=== PATIENT | male | born 1990 | race Caucasian/White ===

== ENCOUNTER 2021-05-02 10:01 | Emergency (ER) | payer OTHER ==
[~2021-05-02] VITALS: Ht 182.9 cm; Wt 90.0 kg
[2021-05-02 10:01] VITALS: BP 120/68
--- NOTE | 2021-05-02 10:48 | RAD ---
Study: XR SHOULDER_LEFT 2+ VIEWS Indication: Injury. Comparison: None. Findings: Alignment is anatomic. No acute fracture. Maintained acromiohumeral interval. Impression: No acute osseous abnormality. Electronically signed by: JIM MAO MD (05/02/2021 10:45 AM) [id number]
[2021-05-02] MEDS ORDERED: DICL50TA4 PO (10:59)
--- NOTE | 2021-05-02 11:00 | PHYS DOC ---
Past History Past Medical History: No Pertinent History (YAHIR SEXTON APRN) Past Surgical History: No Surgical History (YAHIR SEXTON APRN) General Adult EDM: Chief Complaint: SHOULDER INJURY HPI: HPI: Patient is a 30-year-old male who presents today with left shoulder pain. Patient states approximately 3 weeks ago he fell and caught himself using his left arm on the ice, he said and since that time he has had left shoulder pain, and he says he sleeps on his left shoulder and when he is sleeping it hurts tremendously. Patient states he has not followed up with his primary care physician regarding this pain he says today the pain was so bad that he felt he needed to come to the emergency department to be evaluated. He states he has been taking [id number] nonsteroidal anti-inflammatories but has not been using ice to help with pain or swelling. (YAHIR SEXTON APRN) Review of Systems: Review of Systems: Constitutional: Denies fever or chills Eyes: Denies change in visual acuity HENT: Denies nasal congestion or sore throat Respiratory: Denies cough or shortness of breath Cardiovascular: Denies chest pain or edema GI: Denies abdominal pain, nausea, vomiting, bloody stools or diarrhea : Denies dysuria Musculoskeletal: Left shoulder pain denies back pain or joint pain Integument: Denies rash Neurologic: Denies headache, focal weakness or sensory changes Endocrine: Denies polyuria or polydipsia Lymphatic: Denies swollen glands Psychiatric: Denies depression or anxiety (YAHIR SEXTON APRN) Allergies: Allergies: Allergies Coded Allergies Type Severity Reaction Last Updated Verified No Known Drug Allergies 05/02/21 No (YAHIR SEXTON APRN) Physical Exam: PE: Constitutional: Well developed, well nourished, no acute distress, non-toxic appearance. [] HENT: Normocephalic, atraumatic, bilateral external ears normal, oropharynx moist, no oral exudates, nose normal. [] Eyes: PERRLA, EOMI, conjunctiva normal, no discharge. [] Neck: Normal range of motion, no tenderness, supple, no stridor. [] Cardiovascular:Heart rate regular rhythm, no murmur [] Lungs & Thorax: Bilateral breath sounds clear to auscultation [] Abdomen: Bowel sounds normal, soft, no tenderness, no masses, no pulsatile masses. [] Skin: Warm, dry, no erythema, no rash. [] Back: No tenderness, no CVA tenderness. [] Extremities: Left arm normal range of motion, patient does have tenderness along the upper aspects of the deltoid and into the upper shoulder, pain noted with outward rotation of the palm while the arm is stretched out, but he is able to do with that. Radial pulse 2+ cap refill and neurovascular intact distal to the injury Neurologic: Alert and oriented X 3, normal motor function, normal sensory function, no focal deficits noted. [] Psychologic: Affect normal, judgement normal, mood normal. [] (YAHIR SEXTON APRN) Current Patient Data: Vital Signs: Vital Signs Date Time Temp Pulse Resp B/P (MAP) Pulse Ox O2 Delivery O2 Flow Rate FiO2 05/02/21 10:01 97.7 59 16 120/68 (85) 96 Room Air (YAHIR SEXTON APRN) EKG: EKG: [] (YAHIR SEXTON APRN) Radiology/Procedures: Radiology/Procedures: [REASON: INJURY PROCEDURE: SHOULDER 2+V LEFT Study: XR SHOULDER_LEFT 2+ VIEWS Indication: Injury. Comparison: None. Findings: Alignment is anatomic. No acute fracture. Maintained acromiohumeral interval. Impression: No acute osseous abnormality. Electronically signed by: JIM MAO MD (05/02/2021 10:45 AM) [facility]] (YAHIR SEXTON APRN) Heart Score: C/O Chest Pain: N/A Risk Factors: Risk Factors: DM, Current or recent (<one month) smoker, HTN, HLP, family history of CAD, obesity. Risk Scores: Score 0 - 3: 2.5% MACE over next 6 weeks - Discharge Home Score 4 - 6: 20.3% MACE over next 6 weeks - Admit for Clinical Observation Score 7 - 10: 72.7% MACE over next 6 weeks - Early Invasive Strategies (YAHIR SEXTON APRN) Course & Med Decision Making: Course & Med Decision Making Pertinent Labs and Imaging studies reviewed. (See chart for details) Patient does have normal range of motion but does have pain with motion, did discuss the need for follow-up with his primary care physician for further management of this since it is a 3-week old injury he may need to have physical therapy or an evaluation by an orthopedic doctor for further management of this arm pain. Prescription strength NSAID will be prescribed patient will be given an arm sling and instructed to follow-up in the next week with his primary care physician for further management of this. Patient verbalizes understanding is agreeable to the plan of care. (YAHIR SEXTON APRN) Dragon Disclaimer: Dragon Disclaimer: This electronic medical record was generated, in whole or in part, using a voice recognition dictation system. (YAHIR SEXTON APRN) Attending Co-Sign The patient was seen and interviewed as well as examined at the bedside. The chart was reviewed. The case was discussed. Agree with the plan of care. (BALJINDER CARNEY DO) Departure Departure: Impression: Primary Impression: Shoulder pain, left Qualified Codes: M25.512 - Pain in left shoulder Disposition: HOME / SELF CARE / HOMELESS Condition: STABLE Referrals: JUAN DIAZ PAC (PCP) YANICK YEUNG Jr. DO Patient Instructions: Shoulder Pain Additional Instructions: Ice 20 minutes on 3-4 times daily Diclofenac take one tablet twice daily as needed for pain, do not take ibuprofen while taking this medication Use arm sling as needed for pain relief Follow-up with your primary care physician this week for further management of your left arm pain Scripts Diclofenac Sodium (DICLOFENAC SODIUM) 50 Mg Tablet.dr 1 TAB PO PRN BID PRN for PAIN, #30 TAB 1 Refill Prov: YAHIR SEXTON APRN 05/02/21 YAHIR SEXTON APRN May 02, 2021 11:00 BALJINDER CARNEY DO May 04, 2021 10:53
== END 2021-05-02 11:05 | disposition home or self-care (01) ==
LOC: ER 10:01
DX: M25.512 Pain in left shoulder (principal)
CPT/HCPCS: 29105; 73030; 99283